=== PATIENT | male | born 1945 | race Caucasian/White ===

== ENCOUNTER → 2016-12-17 | Outpatient (CLI) | payer MEDICARE, BC ==
[~2016-12-17] MED LIST: ASPIRIN81 M1 PO; ATENOLOL50 MG PO; CHEWABLE ASPIRI81 MG PO; MULTIPLE VITAMI1 T11 PO; NATURAL VITA400 UNI2 PO; PERCOCET 10/3251 TAB PO; PROBIOTIC1 EAC3 PO; VITAMIN E400 UNI1 PO; XALATAN OP
--- NOTE | ~2016-12-17 | CR7 ---
[facility] A Service of [facility] RADIOLOGY TEXT RESULTS PATIENT: EVELYN PARKER LOCATION: [facility] : 49 UNIT #: [id number] AGE: [address]: Dalton Huang MD SEX: M ORDER DR: [id number] [facility] [address] [place], [place] [address] [id number] O MR#: [id number] Acc #: [id number] NAME: EVELYN PARKER : 1945 SEX: M STUDY DATE/TIME: 12/18/2015 13:44 UNIT: [facility] ROOM: STUDY DESCRIPTION: CR Abdomen Single AP View Attending Physician: Dalton Huang M.D. Ordering Physician: Dalton Huang M.D. MEDICAL IMAGING REPORT This report is preliminary unless electronic signature is present EXAM Abdomen one-view 12/17/2016 1344 hours HISTORY A 71-year-old man with history of renal calculus, stones for 1 year. History of prostate cancer. COMPARISON Abdomen film 06/10/2015 FINDINGS Supine view of the abdomen and pelvis excludes the hemidiaphragms. No definite stones are seen on the right however there is stool overlying most of the right kidney. There are a few punctate stones seen overlying the lower pole left kidney. No definite ureteral calculi are seen. Multiple surgical clips are unchanged in the lower pelvis. There is mild rightward scoliosis of the lumbar spine centered at L2-3 with sclerotic appearance at L2, L3-L4, and the superior aspect of L5. This bone density changes similar to the prior study and could represent reactive change however blastic metastasis or treated metastasis could have this appearance. The pelvic bone density is diffusely normal. IMPRESSION 1. No definite right-sided renal stones although there is stool overlying the right kidney. There are a few very small stones projecting over the mid left kidney but no ureteral calculi are seen. 2. Multiple surgical clips in the lower pelvis consistent with prostatectomy and likely lymphadenectomy. 3. Rightward scoliosis centered at L2-3 with degenerative disc disease at L2-3. There is diffusely sclerotic appearance at L2, L3, L4 and L5 similar to prior study. This could represent reactive change. Blastic metastatic disease or treated bone metastases could have this STS. [facility] A Service of [facility] RADIOLOGY TEXT RESULTS PATIENT: EVELYN PARKER LOCATION: [facility] : 49 UNIT #: [id number] AGE: [address]: Dalton Huang MD SEX: M ORDER DR: appearance. The findings do appear stable from 06/10/2015. Dictated by... Ariadna New M.D. THIS IS AN ELECTRONICALLY VERIFIED REPORT Ariadna New M.D. at 12/17/2016 4:01 PM CASSIE/saira TD: 12/17/2016 14:56 JOB #: [id number] MEDICAL IMAGING REPORT Page 1 of 1 COPY
== END | disposition home or self-care (01) ==
LOC: CLAB 13:32
DX: N20.0 Calculus of kidney (principal); M41.9 Scoliosis, unspecified; M51.36 Other intervertebral disc degeneration, lumbar region
CPT/HCPCS: 74000